=== PATIENT | male | born 1970 | race Two or more races ===

== ENCOUNTER 2023-01-24 07:47 | Emergency (ER) | payer BC ==
[~2023-01-24] VITALS: Ht 167.6 cm; Wt 92.9 kg
[2023-01-24 08:16] LABS: Basophils # (auto) 0 10 ^3/uL (0-0.2); Basophils % (auto) 0.7 % (0.0-2.0); Eosinophils # (auto) 0.1 10 ^3/uL (0-0.8); Eosinophils % (auto) 1.3 % (0.0-7.0); Hematocrit 46.6 % (41.0-53.0); Hemoglobin 15.6 g/dL (13.5-17.5); Lymphocytes # (auto) 1.2 10 ^3/uL (0.4-5.4); Lymphocytes % (auto) 19.3 % (10.0-50.0); Mean Corpuscular Hemoglobin 30.3 pg (28.0-32.0); Mean Corpuscular Hgb Conc. 33.5 g/dL (32.0-36.0); Mean Corpuscular Volume 90.3 fL (80.0-100.0); Monocytes # (auto) 0.3 10 ^3/uL (0-1.3); Monocytes % (auto) 5.2 % (0.0-12.0); Neutrophils # (auto) 4.7 10 ^3/uL (1.6-8.6); Neutrophils % (auto) 73.5 % (37.0-80.0); Nucleated Red Blood Cells % 0.1 %; Red Blood Cells 5.16 10^6/uL (4.5-5.90); Red Cell Distribution Width 13.5 % (11.8-14.3); White Blood Cell 6.5 10^3/uL (4.4-10.8)
[2023-01-24 08:33] LABS: Alanine Aminotransferase 14 U/L (7-40); Albumin 4.7 g/dL (3.2-4.8); Alkaline Phosphatase 83 U/L (46-116); Anion Gap 5 (5-15); Aspartate Aminotransferase 16 U/L (13-40); BUN/Creatinine Ratio 17.1 (10.0-20.0); Bilirubin, Total 0.5 mg/dL (0.2-1.0); Blood Urea Nitrogen 14 mg/dL (9-23); Calcium 9.3 mg/dL (8.5-10.1); Carbon Dioxide 26 mmol/L (20-30); Chloride 107 mmol/L (98-107); Glucose 92 mg/dL (74-106); Potassium 4.3 mmol/L (3.5-5.1); Sodium 138 mmol/L (136-145)
[2023-01-24 10:03] LABS: Urine Bacteria FEW /hpf (None Seen); Urine Blood Negative /uL (Negative); Urine Clarity Clear (Clear); Urine Color Yellow (Yellow); Urine Mucus FEW (None Seen); Urine Protein, UAD TRACE (Negative); Urine WBC 1 /hpf (0 - 3); Urine pH 7.5 (5.0-8.0)
[2023-01-24 10:45] VITALS: BP 130/87; PULSE 68; RESP 18; TEMP 98.1; O2SAT 98
== END 2023-01-24 10:47 | disposition home or self-care (01) ==
LOC: ER 07:47
DX: R10.9 Unspecified abdominal pain (principal); R07.89 Other chest pain
CPT/HCPCS: 36415; 71045; 74176; 80053; 81001; 85025; 85379; 93005

== ENCOUNTER → 2023-02-27 | Outpatient (CLI) | payer BC | END | disposition home or self-care (01) | LOC: LAB 15:27 | PROVIDERS: ATTEND Nurse Practitioner Family | DX: R16.0 Hepatomegaly, not elsewhere classified (principal) | CPT/HCPCS: 36415; 82565; 84520 ==

== ENCOUNTER 2024-08-20 08:23 | Day surgery (SDC) | payer BC ==
[2024-08-18 15:03] LABS: Hematocrit 44.6 % (41.0-53.0); Hemoglobin 15.4 g/dL (13.5-17.5); Mean Corpuscular Hemoglobin 30.9 pg (28.0-32.0); Mean Corpuscular Volume 89.5 fL (80.0-100.0); Nucleated Red Blood Cells % 0.3 %
[2024-08-18 15:08] LABS: Urine Protein, UAD Negative (Negative)
[2024-08-18 15:15] LABS: INR 0.94 (0.9-1.15); Partial Thromboplastin Time 26.5 SEC (24.5-34.5); Prothrombin Time 10.0 sec (9.3-11.8)
[2024-08-18 16:01] LABS: Alanine Aminotransferase 17 U/L (7-40); Albumin 4.0 g/dL (3.2-4.8); Alkaline Phosphatase 65 U/L (46-116); Anion Gap 8 (5-15); BUN/Creatinine Ratio 22.7 (10.0-20.0); Bilirubin, Total 0.4 mg/dL (0.2-1.0); Blood Urea Nitrogen 20 mg/dL (9-23); Calcium 9.4 mg/dL (8.7-10.4); Carbon Dioxide 26 mmol/L (20-31); Chloride 107 mmol/L (98-107); Glucose 90 mg/dL (74-106); Potassium 4.0 mmol/L (3.5-5.1); Sodium 141 mmol/L (136-145); Total Protein 6.3 g/dL (5.7-8.2)
[~2024-08-20] VITALS: Ht 167.6 cm; Wt 84.8 kg
[2024-08-20] MEDS ORDERED: MIDAZOLAM HCL 2MG/2ML 2ml VIAL (1mg/ml) ONE (08:57)
[2024-08-20] MEDS ORDERED: fentaNYL CITRATE 100 MCG/2 ML VL ONE (08:57)
[2024-08-20] MEDS ORDERED: PROPOFOL 10 MG/ML 20 ML IV ONE (08:59)
[2024-08-20] MEDS: LIDOCAINE VISCOUS 2% 15ML UD ONE (09:30)
[2024-08-20 09:45] VITALS: TEMP 97.7; O2SAT 98
--- NOTE | 2024-08-20 09:48 | DVHOP2 ---
Operative Report DATE OF OPERATION: 08/20/24 PROCEDURE: Upper Endoscopy with biopsy. PREOPERATIVE INDICATION: The patient is a 53 -year-old male undergoing endoscopy for abdominal pain and history of H.pylori gastritis POSTOPERATIVE DIAGNOSES: 1. Patient had a 1 cm sliding-type hiatal hernia with slightly irregular squa mocolumnar junction grade a linear erosive esophagitis 2. Minimal gastritis in the proximal stomach otherwise essentially completely normal endoscopic examination up to the 2nd and 3rd part of the duodenum PROCEDURE PERFORMED BY: Katherin Toledo GI NURSE: Meg SCOPE: Olympus videoendoscope. ASA CLASS: 2. PREOPERATIVE MEDICATIONS: Mac Dr. Manuela cote PROCEDURE IN DETAIL: After obtaining an informed consent, the patient was placed on left lateral decubitus position. The patient was then sedated with the above medications. A bite block was placed between his teeth. The endoscope was then passed through the oropharynx, into the esophagus, and through the stomach and pylorus up to the second and third part of the duodenum. The endoscope was then withdrawn. The 2nd and 3rd part of the duodenum and the duodenal bulb were normal. Duodena l biopsies were obtained The pre-pyloric area antrum and body appeared to be normal. On retroflexion there was minimal gastritis in the proximal stomach Gastric biopsies were obtained. On retroflexion the fundus cardia and angularis were otherwise normal. The endoscope was then withdrawn into the distal esophagus where he had a 1 cm sliding-type hiatal hernia with slightly irregular squamocolumnar junction mild grade a linear erosive esophagitis GE junction biopsies were obtained. The remaining distal and proximal esophagus and oropharynx were unremarkable The patient tolerated the procedure well without difficulty. COMPLICATIONS : None SPECIMENS: Duodenal biopsies Gastric biopsies GE junction biopsies DISPOSITION: Stable D/C to home PLAN: 1. Await for biopsy result 2. Will place pt on Protonix 40 mg p.o. daily 3. Lifestyle and dietary modifications for GERD 4. Resume GI soft diet advance as tolerated 5. Outpatient follow up with me in 4-6 weeks to review results and discuss further management KATHERIN TOLEDO MD Aug 20, 2024 09:47
--- NOTE | 2024-08-20 09:52 | DVHOP2 ---
Operative Report DATE OF OPERATION: 08/20/24 PROCEDURE: Colonoscopy with cold biopsy. PREOPERATIVE INDICATION: The patient is a 53 -year-old male undergoing colonoscopy for colon cancer screening with history of abdominal pain POSTOPERATIVE DIAGNOSES: 1. Patient had mild left colon diverticular disease in the descending and sigmoid colon 2. There were 2-3 diminutive hyperplastic type sigmoid excrescences that were seen and removed by cold biopsy forceps 3. Trace internal hemorrhoids otherwise completely normal colonoscopy examination up to the cecum and terminal ileum PROCEDURE PERFORMED BY: Katherin Toledo M.D. SCOPE: Olympus videocolonoscope. ASA CLASS: 2. PREOPERATIVE MEDICATIONS: Mac Dr. Manuela cote PROCEDURE IN DETAIL: After obtaining an informed consent, the patient was placed on left lateral decubitus position. He was then sedated with the above medications. A rectal examination was performed that was normal. The colonoscope was then passed through the anus into the rectosigmoid and through the descending, transverse, and ascending colon up to the cecum with visualization of the appendiceal orifice, base of the cecum and the ileocecal valve. The colonoscope was then withdrawn. The distal 5 cm of the terminal ileum were normal No masses or colitis were seen. Patient had mild left colon diverticular disease more prominent in the descending colon He had mild sigmoid muscular hypertrophy. There were 2-3 diminutive benign- appearing sigmoid excrescences that were seen and removed by cold biopsy forceps On retroflexion and straight on view he had trace internal hemorrhoids. The patient tolerated the procedure well without difficulty. WITHDRAWAL TIME: 7 minutes QUALITY OF THE PREP: [place] Bowel Prep score: 9. COMPLICATIONS : None SPECIMENS: Sigmoid colon polyps DISPOSITION: Stable D/C to home PLAN: 1. Repeat colonoscopy base on biopsy result likely in 7-10 years 2. Resume GI soft diet advance as tolerated 3. Increase fluid and fiber intake 4. Outpatient follow up with me in 4-6 weeks to review results and discuss further management KATHERIN TOLEDO MD Aug 20, 2024 09:52
[2024-08-20 10:15] VITALS: BP 133/89; PULSE 64; RESP 19; O2SAT 95
== END 2024-08-20 10:25 | disposition home or self-care (01) ==
LOC: GI 08:23
PROVIDERS: ATTEND Internal Medicine Gastroenterology
DX: R10.84 Generalized abdominal pain (principal); K63.5 Polyp of colon; K57.30 Diverticulosis of large intestine without perforation or abscess without bleeding; K29.50 Unspecified chronic gastritis without bleeding; K22.10 Ulcer of esophagus without bleeding; K44.9 Diaphragmatic hernia without obstruction or gangrene; N40.0 Benign prostatic hyperplasia without lower urinary tract symptoms; Z79.899 Other long term (current) drug therapy; Z87.19 Personal history of other diseases of the digestive system; Z87.11 Personal history of peptic ulcer disease
CPT/HCPCS: 36415; 43239; 45380; 80053; 81001; 85025; 85610; 85730; 88305; 88342; J1100; J2250; J2704; J3010; J7030

== ENCOUNTER → 2025-02-02 | Outpatient (CLI) | payer BC ==
[2025-02-02 07:56] LABS: Hematocrit 43.0 % (41.0-53.0); Hemoglobin 14.8 g/dL (13.5-17.5); Mean Corpuscular Hemoglobin 30.2 pg (28.0-32.0); Mean Corpuscular Volume 87.6 fL (80.0-100.0); Nucleated Red Blood Cells % 0.0 %
[2025-02-02 08:57] LABS: Alanine Aminotransferase 17 U/L (7-40); Albumin 3.8 g/dL (3.2-4.8); Alkaline Phosphatase 64 U/L (46-116); Anion Gap 6 (5-15); BUN/Creatinine Ratio 15.8 (10.0-20.0); Bilirubin, Total 0.7 mg/dL (0.2-1.0); Blood Urea Nitrogen 12 mg/dL (9-23); Carbon Dioxide 27 mmol/L (20-31); Glucose 93 mg/dL (74-106); Potassium 4.1 mmol/L (3.5-5.1); Sodium 140 mmol/L (136-145); Total Protein 6.4 g/dL (5.7-8.2)
[2025-02-02 08:58] LABS: Calcium 8.4 mg/dL (8.7-10.4); Chloride 107 mmol/L (98-107)
[2025-02-02 09:20] LABS: Triglycerides 86 mg/dL (< 150)
[2025-02-02 09:24] LABS: Cholesterol 220 mg/dL (< 200); HDL Cholesterol 70 mg/dL (40-59)
== END | disposition home or self-care (01) ==
LOC: LAB 07:35
PROVIDERS: ATTEND Nurse Practitioner Family
DX: E78.5 Hyperlipidemia, unspecified (principal); R35.1 Nocturia; Z00.01 Encounter for general adult medical examination with abnormal findings
CPT/HCPCS: 36415; 80053; 80061; 84153; 84443; 85025